=== PATIENT | female | born 1945 | race Caucasian/White ===

== ENCOUNTER 2023-02-10 10:52 | Outpatient (CLI) | payer MEDICARE, BC | END 2023-02-10 10:53 | disposition home or self-care (01) | LOC: CSHMAMMO 10:52 | PROVIDERS: ATTEND Obstetrics & Gynecology | DX: Z13.820 Encounter for screening for osteoporosis (principal); M81.0 Age-related osteoporosis without current pathological fracture | CPT/HCPCS: 77080 ==